=== PATIENT | female | born 1950 | race Hispanic/Latino ===

== ENCOUNTER 2018-01-04 07:47 | Day surgery (SDC) | payer MEDICARE ==
[~2018-01-04] VITALS: Ht 154.9 cm; Wt 56.3 kg
[2018-01-04] VITALS (8 sets, daily range): BP systolic 88–149; BP diastolic 28–43
[~2018-01-04 07:47] MED LIST: CINA30 PO; FOLI0.8T2 PO; METO5 PO; PANT40TA25 PO; SEVE800T7 PO; SIMV20TA6 PO; SODIUM CHLORIDE 0.9% 1000ML 1,000 ML IV ONE; [UNRECOGNIZED DRUG - CODE] OP
[2018-01-04 08:48] LABS: BASOPHILS % (AUTO) 0.7 % (0.0-5.0); EOSINOPHILS % (AUTO) 1.8 % (0.0-8.0); HEMATOCRIT 32.1 % (36-48); LYMPHOCYTES % (AUTO) 23.5 % (21.0-51.0); MEAN CORPUSCULAR HGB CONC 33.3 g/dL (32.0-36.0); MEAN CORPUSCULAR VOLUME 101.9 fL (79-99); MONOCYTES % (AUTO) 8.1 % (3.0-13.0); NEUTROPHILS % (AUTO) 65.9 % (40.0-77.0); PLATELET COUNT (AUTO) 177 K/uL (130-400); RED BLOOD CELL COUNT(AUTO) 3.15 MIL/uL (4.00-5.50); RED CELL DISTRIBUTION WIDTH 16.2 % (11.0-15.5); WHITE BLOOD COUNT (AUTO) 6.2 K/uL (4.8-10.8)
[2018-01-04 08:55] LABS: CREATININE 3.8 mg/dL (0.5-1.5)
[2018-01-04 08:59] LABS: ALBUMIN 3.3 g/dL (3.5-5.0); BILIRUBIN,TOTAL 0.5 mg/dL (0.2-1.0); TOTAL PROTEIN, SERUM 7.2 g/dL (6.0-8.3)
[2018-01-04] MEDS ORDERED: INSU100I15 SQ (09:46)
[2018-01-04] MEDS ORDERED: ONDA4TAB7 PO (09:46)
[2018-01-04] MEDS ORDERED: BISA5TAB12 PO (09:46)
[2018-01-04] MEDS ORDERED: ASPI-555 PO (09:46)
[2018-01-04] MEDS ORDERED: PROPOFOL 10 MG/ML 20ML VIAL IV ONE (10:42)
[2018-01-04] MEDS ORDERED: CEFAZOLIN SODIUM 1 GM VIAL ONE (11:30)
[2018-01-04] MEDS ORDERED: CEFAZOLIN SODIUM 1 GM VIAL IVP SCH (12:00)
== END 2018-01-04 11:57 | disposition home or self-care (01) ==
LOC: DAH 07:47
PROVIDERS: ATTEND Internal Medicine Gastroenterology
DX: K29.50 Unspecified chronic gastritis without bleeding (principal); K80.20 Calculus of gallbladder without cholecystitis without obstruction; K86.2 Cyst of pancreas; E78.5 Hyperlipidemia, unspecified; E03.9 Hypothyroidism, unspecified; E11.22 Type 2 diabetes mellitus with diabetic chronic kidney disease; N18.6 End stage renal disease; I12.0 Hypertensive chronic kidney disease with stage 5 chronic kidney disease or end stage renal disease; Z79.899 Other long term (current) drug therapy
CPT/HCPCS: 36415; 43242; 80053; 82150; 82948; 83690; 85025; 88173; 88305; 93005; A4215; A4606; J0690; J2704; J7030; 43232

== ENCOUNTER 2019-01-23 09:06 | Inpatient (IN) | payer MEDICARE ==
[~2019-01-23] VITALS: Ht 154.9 cm; Wt 50.2 kg
[~2019-01-23 09:06] MED LIST changes: +AMLO2.5T4 PO; +FURO40TA5 PO; +INSU3INS5 SQ; -METO5 PO; -PANT40TA25 PO; +PRAV20TA4 PO; +SERT25TA5 PO; -SIMV20TA6 PO; -SODIUM CHLORIDE 0.9% 1000ML 1,000 ML IV ONE; -[UNRECOGNIZED DRUG - CODE] OP; +[UNRECOGNIZED DRUG - CODE] OU
[2019-01-23 10:22] LABS: BASOPHILS % (AUTO) 0.8 % (0.0-5.0); EOSINOPHILS % (AUTO) 0.8 % (0.0-8.0); HEMATOCRIT 34.8 % (36-48); LYMPHOCYTES % (AUTO) 18.5 % (21.0-51.0); MEAN CORPUSCULAR HEMOGLOBIN 34.5 pg (27.0-33.0); MEAN CORPUSCULAR HGB CONC 33.8 g/dL (32.0-36.0); MEAN CORPUSCULAR VOLUME 102.2 fL (79-99); MONOCYTES % (AUTO) 5.9 % (3.0-13.0); PLATELET COUNT (AUTO) 258 K/uL (130-400); RED BLOOD CELL COUNT(AUTO) 3.41 MIL/uL (4.00-5.50); RED CELL DISTRIBUTION WIDTH 16.2 % (11.0-15.5); WHITE BLOOD COUNT (AUTO) 7.7 K/uL (4.8-10.8)
[2019-01-23 10:38] LABS: INR 1.02 (0.85-1.15); PARTIAL THROMBOPLASTIN TIME 25.2 SEC (26.3-35.5); PROTHROMBIN TIME 10.5 SEC (9.6-11.6)
[2019-01-23 10:44] LABS: CREATININE 4.8 mg/dL (0.5-1.5)
[2019-01-23 10:57] LABS: ALBUMIN 2.8 g/dL (3.5-5.0); BILIRUBIN,TOTAL 0.4 mg/dL (0.2-1.0); THYROID STIMULATING HORMONE 2.68 uIU/mL (0.36-3.74)
[2019-01-23 12:16] LABS: B-TYPE NATRIURETIC PEPTIDE 1510 pg/mL (0-100)
[2019-01-23 12:21] LABS: APPEARANCE,URINE CLEAR (CLEAR); BILIRUBIN,URINE NEGATIVE (NEGATIVE); COLOR,URINE YELLOW (YELLOW); GLUCOSE, URINE (UA) NEGATIVE (NEGATIVE); KETONES,URINE NEGATIVE (NEGATIVE); LEUKOCYTE ESTERASE ,URINE MODERATE (NEGATIVE); NITRATE,URINE NEGATIVE (NEGATIVE); OCCULT BLOOD,URINE MODERATE (NEGATIVE); PROTEIN,URINE >=300 mg/dL (NEGATIVE); UROBILINOGEN,URINE 0.2 mg/dL (0.2-1.0)
[2019-01-23 12:35] LABS: BACTERIA,URINE Few /HPF (None Seen); RBC,URINE 0-1 /HPF (0-1); SQUAMOUS EPITHELIAL CELL,UR Rare /HPF (0-2); WBC,URINE 26-50 /HPF (0-1)
[2019-01-23] MEDS ORDERED: ACETAMINOPHEN 325 MG TAB PO PRN ×2 (13:15)
[2019-01-23] MEDS ORDERED: ONDANSETRON HCL 4 MG/2 ML VIAL IVP PRN (13:15)
[2019-01-23] MEDS: ZOSYN 3.375GM+NS 50ML 50 ML IV SCH (13:15)
[2019-01-23 14:20] VITALS: BP 145/67
--- NOTE | 2019-01-23 14:55 | NUR ---
ADMISSION FROM . ER. PER SERVICES OF .DR VILLAGOMEZ . . PT WITH HER EYES OPEN . AND REVIEW ADMISSSION CARE. AND DR. VIRAMONTES . PT PER ER NURSE REPORT WAS NOT ABLE TO START A PIV . NO PIV ACCESS . PT ATTEMPT X 5 AND WAS NOT ABLE TO START ON FOR PT... WITH DR. VIRAMONTES TO START A PICC LINE. PT CAME IN WITH A LT HAND BLISTER . DARK RED , BLACK COLOR . PT STATED THAT HAPPEN AT THE OTHER HOSPITAL. PICTURES TAKEN WITH WOUND CARE ORDERS PLACED FOR CARE. PT HAS HISTORY OF DIALYSIS AND TREATMENT DONE . ON WEDNESDAY , WEDNESDAY AND FRIDAYS . PT HAS A ACCESS TO HER RT ARM. WITH A GOOD BRUIT NOTED . PT HAS A OLD ONE TO HER UPPER ARM. NOT WORKING . PT HAS ALSO A H OF PACEMAKER . PT WAS PLACED ON TELE.MONITOR. HOB UP . BED LEVEL DOWN. REVIEW HOME MED. PT BROUGHT IN A LARGE BAG OF MEDICATIONS AND DOES NOT KNOW WHAT IS ACTIVE . WILL NEED TO CALL HER PRIVATE DRBerta FOR CORRECT HOME MEDICATIONS. REVIEW FALL RISK AND CALL LIGHT IN REACH ..
[2019-01-23] MEDS: VANCOMYCIN 1GM+NS 250ML 250 ML IV SCH ×2 (16:05→21:26)
[2019-01-23] MEDS ORDERED: VANCOMYCIN PROTOCOL PER PHARMACY IV SCH (16:15)
[2019-01-23] MEDS ORDERED: GLUCAGON 1MG KIT 1 MG ML IM PRN (17:00)
[2019-01-23] MEDS ORDERED: DEXTROSE 50%-WATER 50 ML DISP.SYRIN IV PRN (17:00)
[2019-01-23 19:05] VITALS: BP 146/91
--- NOTE | 2019-01-23 20:00 | NUR ---
20 g Midline placed to anterior VALENCIA using sterile technique by Ana Preston RN. CXR order placed to verify placement.
--- NOTE | 2019-01-23 20:30 | NUR ---
Unable to view midline placement from CXR per protocol to verify placement. XR of humerus ordered for placement verification of midline.
--- NOTE | 2019-01-23 23:00 | NUR ---
blood pressures antihypertensive not given because patient undergoing dialysis. after dialysis at 00:17, blood pressure is 153/100, temperature 97.5, respirations 18, and o2 sat 100% room air. patient resting calmly at the bedside.
[2019-01-23 23:05] VITALS: BP 172/62
--- NOTE | 2019-01-24 00:17 | NUR ---
dialysis 1.7 liters were dialysed from 21:17 to 00:17. will undergo another dialysis session on wednesday and wednesday
[2019-01-24] MEDS: ZOSYN 3.375GM+NS 50ML 50 ML IV SCH ×3 (01:19→23:42)
[2019-01-24 03:05] VITALS: BP 148/84
[2019-01-24 05:40] LABS: HEMATOCRIT 32.5 % (36-48); MEAN CORPUSCULAR HEMOGLOBIN 34.6 pg (27.0-33.0); MEAN CORPUSCULAR HGB CONC 34.1 g/dL (32.0-36.0); MEAN CORPUSCULAR VOLUME 101.4 fL (79-99); PLATELET COUNT (AUTO) 215 K/uL (130-400); WHITE BLOOD COUNT (AUTO) 7.4 K/uL (4.8-10.8)
[2019-01-24 05:55] LABS: CREATININE 3.1 mg/dL (0.5-1.5); PHOSPHORUS 1.9 mg/dL (2.5-4.9); POTASSIUM 3.7 mmol/L (3.5-5.1)
[2019-01-24 05:56] LABS: LYMPHOCYTES % (MANUAL) 34 % (22-44); MAN.DIFF COMMENT-IMPRESSION MANUAL DIFFERENTIAL; MONOCYTES % (MANUAL) 4 % (2-9); PLATELET MORPHOLOGY COMMENT ADEQUATE; SEGMENTED NEUTROPHILS % 62 % (40-70)
[2019-01-24 07:30] VITALS: BP 159/62
--- NOTE | 2019-01-24 07:45 | NUR ---
Called Dr. Ady Espino's office at [phone] to verify current medications as patient and family poor historian. Kierra lynn.
--- NOTE | 2019-01-24 10:23 | NUR ---
PRIMARY DR. KADE LU FROM [facility] . OFFICE WAS CALLED FOR DATA REGARDING PT HOME MEDICATION LIST. UNCLEAR WHAT MEDICATIONS PT IS ON . DUE TO PT BRINGING IN 2 FULL BAGS OF MEDICATIONS AND DOES NOT KNOW WHAT MEDICATIONS SHE IS ON. OFFICE STAFF WILL BE FAXING THEIR CURRENT INFORMATIONS AND CHART THOSES MEDICATION
[2019-01-24 11:00] VITALS: BP 120/99
[2019-01-24] MEDS ORDERED: AMLO5TAB9 PO (12:11)
[2019-01-24] MEDS ORDERED: CIPR-279 PO (12:11)
[2019-01-24] MEDS ORDERED: LISI-617 PO (12:11)
[2019-01-24] MEDS ORDERED: PANT40TA25 PO (12:11)
[2019-01-24] MEDS ORDERED: SEVE800T7 PO (12:11)
[2019-01-24] MEDS ORDERED: FOLI1TAB85 PO (12:11)
[2019-01-24] MEDS ORDERED: LOPE-198 PO (12:11)
[2019-01-24] MEDS ORDERED: FURO40TA7 PO (12:11)
[2019-01-24] MEDS ORDERED: CINA30TA5 PO (12:11)
[2019-01-24] MEDS ORDERED: INSU300I SQ (12:11)
[2019-01-24] MEDS ORDERED: METO25TA6 PO (12:11)
--- NOTE | 2019-01-24 12:15 | NUR ---
HOME MEDICATIONS WERE ENTER PER. DR. KADE LU OFFICE [phone] LIST WAS ALSO GIVEN TO FOR FURTHER INFORMATION FOR HIS . CARE.
--- NOTE | 2019-01-24 14:21 | NUR ---
DCP CM met with pt discussed dc plans. Pt is independent prior to admission, lives at home with spouse. Pt has a provider, goes to [facility] for hemodialysis. Denies any equipments/services. Feels safe to go back home, spouse able to assist with transportation and needs as necessary. DC plan to home once stable. CM to cont to follow up. Addendum: 01/24/19 at 1422 by NICOLE SELLERS LVN CM Amended: Links added.
--- NOTE | 2019-01-24 15:31 | NUR ---
HEALTH SYSTEM consult Patient assessed as ordered. Patient with blister and bruise to top of left hand. Opsite intact. No other HEALTH SYSTEM recommendations required at this time. Addendum: 01/24/19 at 1533 by FLORECITA AVILA RN/ Amended: Links added.
[2019-01-24 16:00] VITALS: BP 129/101
[2019-01-24] MEDS ORDERED: HYDRALAZINE HCL 20 MG/ML VIAL IV PRN (17:00)
--- NOTE | 2019-01-24 17:01 | NUR ---
Called Dr. Vivian Holman to notify of BP 129/101. Asymptomatic, resting in bed, denies headache or blurred vision. Received orders to resume home meds amlodipine besylate 5 mg PO Daily, Lisinopril 5 mg PO Daily and Metoprolol 25 mg PO BID and PRN hydralazine 10 mg IVP Q6h for systolic pressures >160 and diastolic > 90.
[2019-01-24 20:20] VITALS: BP 133/54
[2019-01-24] MEDS: METOPROLOL TARTRATE 50 MG TAB PO SCH (22:58)
[2019-01-25] VITALS (7 sets, daily range): BP systolic 109–162; BP diastolic 44–79
[2019-01-25 05:39] LABS: CREATININE 4.3 mg/dL (0.5-1.5); POTASSIUM 4.2 mmol/L (3.5-5.1)
[2019-01-25 05:40] LABS: HEMATOCRIT 31.7 % (36-48); MEAN CORPUSCULAR HEMOGLOBIN 33.7 pg (27.0-33.0); MEAN CORPUSCULAR HGB CONC 33.5 g/dL (32.0-36.0); MEAN CORPUSCULAR VOLUME 100.6 fL (79-99); PLATELET COUNT (AUTO) 201 K/uL (130-400); RED BLOOD CELL COUNT(AUTO) 3.16 MIL/uL (4.00-5.50); RED CELL DISTRIBUTION WIDTH 15.9 % (11.0-15.5); WHITE BLOOD COUNT (AUTO) 7.5 K/uL (4.8-10.8)
[2019-01-25 08:12] LABS: HEPATITIS A ANTIBODY IGM Negative (Negative); HEPATITIS B CORE IGM Negative (Negative); HEPATITIS Bs ANTIGEN SCREEN P Negative (Negative)
[2019-01-25] MEDS: AMLODIPINE BESYLATE 5 MG TAB PO SCH (09:00)
[2019-01-25] MEDS: METOPROLOL TARTRATE 50 MG TAB PO SCH ×2 (09:00→21:25)
[2019-01-25] MEDS: LISINOPRIL 5 MG TABLET PO SCH (09:00)
[2019-01-25] MEDS: ZOSYN 3.375GM+NS 50ML 50 ML IV SCH (13:15)
[2019-01-26] MEDS: ZOSYN 3.375GM+NS 50ML 50 ML IV SCH ×2 (00:52→13:30)
[2019-01-26 03:59] VITALS: BP 155/53
[2019-01-26] MEDS: METOPROLOL TARTRATE 50 MG TAB PO SCH ×2 (08:03→20:29)
[2019-01-26] MEDS: LISINOPRIL 5 MG TABLET PO SCH (08:03)
[2019-01-26] MEDS: AMLODIPINE BESYLATE 5 MG TAB PO SCH (08:03)
[2019-01-26 08:16] VITALS: BP 185/76
[2019-01-26 11:47] VITALS: BP 117/76
--- NOTE | 2019-01-26 12:56 | NUR ---
CM Note: declined placement CM met with pt and family discussed MD recommendations for placement, at this time pt and fam declined. Pt wants to go home, spouse states he is able to assist pt at home, pt also has provider 6hrs daily. DC plan to home once stable. Pending Dr Cam wallace recs for poss abx. Primary nurse aware. CM to cont to followup
[2019-01-26] MEDS ORDERED: INSULIN HUMULIN R 100 UNIT/ML 3ML ONE (13:19)
[2019-01-26] MEDS: INSULIN HUMULIN R 100 UNIT/ML 3ML SQ SCH ×3 (13:40→20:29)
[2019-01-26 16:15] VITALS: BP 157/61
[2019-01-26 20:17] VITALS: BP 149/58
[2019-01-26 23:39] VITALS: BP 156/63
[2019-01-27] MEDS: ZOSYN 3.375GM+NS 50ML 50 ML IV SCH ×2 (00:53→13:44)
[2019-01-27 04:26] VITALS: BP 169/74
[2019-01-27] MEDS: INSULIN HUMULIN R 100 UNIT/ML 3ML SQ SCH ×2 (05:19→11:30)
[2019-01-27 06:20] LABS: HEMOGLOBIN A1C 5.8 % (4.0-6.0)
--- NOTE | 2019-01-27 08:28 | NUR ---
STARTED ON HD TX. NOW.
[2019-01-27 08:38] VITALS: BP 157/74
[2019-01-27] MEDS: LISINOPRIL 5 MG TABLET PO SCH (09:00)
[2019-01-27] MEDS: AMLODIPINE BESYLATE 5 MG TAB PO SCH (09:00)
[2019-01-27] MEDS: METOPROLOL TARTRATE 50 MG TAB PO SCH (09:00)
[2019-01-27] MEDS ORDERED: VANCOMYCIN 1GM+NS 250ML 250 ML IV SCH (11:12)
--- NOTE | 2019-01-27 11:28 | NUR ---
HD TX COMPLETE. TOLERATED WELL. 2.7 LITERS REMOVED. BP 149/66, HR 77, RR 18, T.97.5
[2019-01-27 11:41] VITALS: BP 165/87
[2019-01-27 16:13] VITALS: BP 150/60
--- NOTE | 2019-01-27 17:00 | NUR ---
DISCHARGED NOW USING EACH BACK, WILL FOLLOW UP WITH PRIMARY DRBerta IN [place], SALINE LOCK REMOVED, TELE-MONITOR REMOVED. VERBALIZED UNDERSTANDING OF ALL INST. GIVEN.
== END 2019-01-27 17:11 | disposition home or self-care (01) | DRG 602 ==
LOC: EDH 09:06 → OBSVTOIN 13:00 → EDHIP 13:00 → 3BH 14:30
PROVIDERS: ADMIT Internal Medicine; ATTEND Internal Medicine
PROC: 5A1D70Z Performance of Urinary Filtration, Intermittent, Less than 6 Hours Per Day (ICD-10-PCS; principal; 2019-01-23)
PROC: 5A1D70Z Performance of Urinary Filtration, Intermittent, Less than 6 Hours Per Day (ICD-10-PCS; 2019-01-25)
PROC: 5A1D70Z Performance of Urinary Filtration, Intermittent, Less than 6 Hours Per Day (ICD-10-PCS; 2019-01-27)
DX: L03.114 Cellulitis of left upper limb (principal); G93.41 Metabolic encephalopathy; N18.6 End stage renal disease; N12 Tubulo-interstitial nephritis, not specified as acute or chronic; I12.0 Hypertensive chronic kidney disease with stage 5 chronic kidney disease or end stage renal disease; E11.22 Type 2 diabetes mellitus with diabetic chronic kidney disease; K59.00 Constipation, unspecified; K21.9 Gastro-esophageal reflux disease without esophagitis; E03.9 Hypothyroidism, unspecified; E78.5 Hyperlipidemia, unspecified; E11.51 Type 2 diabetes mellitus with diabetic peripheral angiopathy without gangrene; I25.10 Atherosclerotic heart disease of native coronary artery without angina pectoris; D64.9 Anemia, unspecified; E78.00 Pure hypercholesterolemia, unspecified; Z90.710 Acquired absence of both cervix and uterus; Z99.2 Dependence on renal dialysis; Z87.440 Personal history of urinary (tract) infections; Z83.3 Family history of diabetes mellitus; Z82.49 Family history of ischemic heart disease and other diseases of the circulatory system; Z81.8 Family history of other mental and behavioral disorders; Z79.4 Long term (current) use of insulin; Z82.0 Family history of epilepsy and other diseases of the nervous system; Z79.899 Other long term (current) drug therapy
CPT/HCPCS: 36415; 70450; 71045; 73060; 80048; 80053; 80074; 80202; 81001; 82550; 82948; 83036; 83605; 83880; 84100; 84443; 84484; 85025; 85027; 85610; 85730; 87040; 87088; 87804; 90935; 93005; 97039; G0378; J0360; J1815; J2543; J3370

== ENCOUNTER 2019-11-20 10:45 | Emergency (ER) | payer MEDICARE ==
[~2019-11-20 10:45] MED LIST changes: -AMLO2.5T4 PO; +AMLO5TAB9 PO; -CINA30 PO; +CINA30TA5 PO; -FOLI0.8T2 PO; +FOLI1TAB85 PO; -FURO40TA5 PO; +FURO40TA7 PO; +INSU300I SQ; -INSU3INS5 SQ; +LISI-617 PO; +LOPE-198 PO; +METO25TA6 PO; +PANT40TA25 PO; -PRAV20TA4 PO; -SERT25TA5 PO; -[UNRECOGNIZED DRUG - CODE] OU
[2019-11-20 11:24] LABS: BASOPHILS % (AUTO) 0.7 % (0.0-5.0); EOSINOPHILS % (AUTO) 0.9 % (0.0-8.0); HEMATOCRIT 33.1 % (36-48); LYMPHOCYTES % (AUTO) 15.5 % (21.0-51.0); MEAN CORPUSCULAR HEMOGLOBIN 34.5 pg (27.0-33.0); MEAN CORPUSCULAR HGB CONC 33.5 g/dL (32.0-36.0); MEAN CORPUSCULAR VOLUME 102.8 fL (79-99); MONOCYTES % (AUTO) 4.5 % (3.0-13.0); NEUTROPHILS % (AUTO) 77.9 % (40.0-77.0); PLATELET COUNT (AUTO) 198 K/uL (130-400); RED BLOOD CELL COUNT(AUTO) 3.22 MIL/uL (4.00-5.50); RED CELL DISTRIBUTION WIDTH 15.6 % (11.0-15.5); WHITE BLOOD COUNT (AUTO) 7.5 K/uL (4.8-10.8)
[2019-11-20 11:37] LABS: POTASSIUM 5.8 mmol/L (3.5-5.1)
[2019-11-20 11:42] LABS: CREATININE 8.5 mg/dL (0.5-1.5)
[2019-11-20 12:28] LABS: INR 0.91 (0.85-1.15); PARTIAL THROMBOPLASTIN TIME 26.8 SEC (26.3-35.5); PROTHROMBIN TIME 9.9 SEC (9.6-11.6)
[2019-11-20] MEDS ORDERED: SODIUM ZIRCONIUM CYCLOSILICATE 10 GM POWD.PACK PO NR (14:30)
[2019-11-20] MEDS ORDERED: SODIUM ZIRCONIUM CYCLOSILICATE 5 GM POWD.PACK PO ONE (15:00)
== END 2019-11-20 15:59 | disposition home or self-care (01) ==
LOC: EDH 10:45
DX: T82.590A Other mechanical complication of surgically created arteriovenous fistula, initial encounter (principal); I12.0 Hypertensive chronic kidney disease with stage 5 chronic kidney disease or end stage renal disease; E11.22 Type 2 diabetes mellitus with diabetic chronic kidney disease; N18.6 End stage renal disease; E78.5 Hyperlipidemia, unspecified; Z90.49 Acquired absence of other specified parts of digestive tract; Z90.710 Acquired absence of both cervix and uterus
CPT/HCPCS: 36415; 80048; 85025; 85610; 85730; 93005

== ENCOUNTER 2019-12-26 07:06 | Day surgery (SDC) | payer MEDICARE ==
[~2019-12-26] VITALS: Ht 157.5 cm; Wt 51.3 kg
[2019-12-26] VITALS (7 sets, daily range): BP systolic 142–164; BP diastolic 52–71
[~2019-12-26 07:06] MED LIST changes: +ATOR10TA69 PO; +DONE5TAB33 PO; +INSU100I15 SQ; -INSU300I SQ; -LOPE-198 PO; +MEMA5TAB42 PO; +METO10TA3 PO; -PANT40TA25 PO; +SERT25TA5 PO; +SODIUM CHLORIDE 0.9% 1000ML 1,000 ML IV ONE
[2019-12-26 09:53] LABS: POTASSIUM 4.8 mmol/L (3.5-5.1)
[2019-12-26] MEDS ORDERED: LEVOFLOXACIN 500 MG/D5W 100 ML 100 ML ONE (11:01)
== END 2019-12-26 11:49 | disposition home or self-care (01) ==
LOC: DAH 07:06 → ENDO 07:06
PROVIDERS: ATTEND Internal Medicine Gastroenterology
DX: K86.2 Cyst of pancreas (principal); K80.20 Calculus of gallbladder without cholecystitis without obstruction; K57.30 Diverticulosis of large intestine without perforation or abscess without bleeding; K31.89 Other diseases of stomach and duodenum; K86.89 Other specified diseases of pancreas; R93.3 Abnormal findings on diagnostic imaging of other parts of digestive tract; E78.5 Hyperlipidemia, unspecified; E03.9 Hypothyroidism, unspecified; I13.11 Hypertensive heart and chronic kidney disease without heart failure, with stage 5 chronic kidney disease, or end stage renal disease; E11.22 Type 2 diabetes mellitus with diabetic chronic kidney disease; N18.6 End stage renal disease; K31.84 Gastroparesis; K21.9 Gastro-esophageal reflux disease without esophagitis; K59.00 Constipation, unspecified; Z20.828 Contact with and (suspected) exposure to other viral communicable diseases
CPT/HCPCS: 36415; 43238; 80048; 82948; 93005; A4215 ×2; A4221; A4222; A4223; A4606; A4620; A4657; A4663; C9803; J1956; J7030; U0003

== ENCOUNTER 2020-02-20 08:22 | Day surgery (SDC) | payer MEDICARE ==
[~2020-02-20 08:22] MED LIST changes: +AMLO-257 PO; -AMLO5TAB9 PO; +BISA-105 PO; +OMEP40CA13 PO; +ONDA-104 PO; +PREG75CA75 PO
[2020-02-20 11:39] LABS: CREATININE 3.1 mg/dL (0.5-1.5); POTASSIUM 4.5 mmol/L (3.5-5.1)
[2020-02-20] MEDS ORDERED: PROPOFOL 10 MG/ML 20ML VIAL IV ONE (11:50)
[2020-02-20] MEDS ORDERED: LIDOCAINE HCL 1% 20 ML VIAL ONE (11:54)
[2020-02-20] MEDS ORDERED: MIDAZOLAM HCL 1 MG/ML 2ML VIAL ONE (12:23)
[2020-02-20 12:32] VITALS: BP 145/36
[2020-02-20 12:37] VITALS: BP 138/45
[2020-02-20 12:42] VITALS: BP 164/46
[2020-02-20 12:47] VITALS: BP 160/46
[2020-02-20 12:52] VITALS: BP 150/48
[2020-02-20 12:57] VITALS: BP 167/41
== END 2020-02-20 13:09 | disposition home or self-care (01) ==
LOC: DAH 08:22 → ENDO 08:22
PROVIDERS: ATTEND Internal Medicine Gastroenterology
DX: K86.2 Cyst of pancreas (principal); K80.20 Calculus of gallbladder without cholecystitis without obstruction; K86.89 Other specified diseases of pancreas; I13.11 Hypertensive heart and chronic kidney disease without heart failure, with stage 5 chronic kidney disease, or end stage renal disease; E11.22 Type 2 diabetes mellitus with diabetic chronic kidney disease; N18.6 End stage renal disease; E78.5 Hyperlipidemia, unspecified; E03.9 Hypothyroidism, unspecified; R63.4 Abnormal weight loss; K31.84 Gastroparesis; K21.9 Gastro-esophageal reflux disease without esophagitis; K57.30 Diverticulosis of large intestine without perforation or abscess without bleeding; K59.00 Constipation, unspecified; Z79.899 Other long term (current) drug therapy; Z20.828 Contact with and (suspected) exposure to other viral communicable diseases
CPT/HCPCS: 36415 ×2; 43242; 80048; 88173; 88305; A4215 ×3; A4216; A4221; A4222; A4223; A4606; A4620; A4657 ×2; A4663; C9803; J2250; J2704; J7030; U0003

== ENCOUNTER → 2020-06-05 | Outpatient (CLI) | payer MEDICARE ==
[~2020-06-05] MED LIST changes: -LISI-617 PO; +LISI-809 PO; +SERT-438 PO; -SERT25TA5 PO; -SODIUM CHLORIDE 0.9% 1000ML 1,000 ML IV ONE
== END | disposition home or self-care (01) ==
LOC: DAH 10:00 → EDSTATUS 06-11 07:30 → DAH 06-11 10:00
PROVIDERS: ATTEND Internal Medicine Gastroenterology
DX: Z01.812 Encounter for preprocedural laboratory examination (principal); Z20.822 Contact with and (suspected) exposure to COVID-19; K86.2 Cyst of pancreas; R93.3 Abnormal findings on diagnostic imaging of other parts of digestive tract
CPT/HCPCS: C9803; U0003